=== PATIENT | male | born 1990 | race Hispanic/Latino ===

== ENCOUNTER → 2023-10-15 | Outpatient (CLI) | payer BC ==
[2023-10-15 12:51] LABS: CHOLESTEROL 184 mg/dL (<200); HDL CHOLESTEROL 41 mg/dL (29-71); LDL DIRECT 136 mg/dL (0-99); TRIGLYCERIDES 72 mg/dL (30-200)
== END | disposition home or self-care (01) ==
LOC: LAB 10-14 10:47
PROVIDERS: ATTEND Internal Medicine Cardiovascular Disease
DX: E78.5 Hyperlipidemia, unspecified (principal)
CPT/HCPCS: 36415; 80061